=== PATIENT | male | born 1965 | race Caucasian/White ===

== ENCOUNTER 2019-05-13 12:18 | Observation (INO) | payer BC ==
[2019-05-12 22:20] VITALS: BP 154/89
[~2019-05-13] VITALS: Ht 180.3 cm; Wt 95.0 kg
[2019-05-13] MEDS ORDERED: aspirin 81mg tab.chew PO ONE (12:25)
[2019-05-13 12:52] LABS: BASOPHILS % (AUTO) 0.3 % (0-1); EOSINOPHILS # (AUTO) 0.2 X10'3 (0-0.9); EOSINOPHILS % (AUTO) 3.7 % (0-6); HEMATOCRIT 43.6 % (42.0-52.0); HEMOGLOBIN 15.2 g/dl (14.0-17.9); LYMPHOCYTES # (AUTO) 1.6 X10'3 (1.1-4.8); LYMPHOCYTES % (AUTO) 37.6 % (21-51); MEAN CORPUSCULAR HEMOGLOBIN 34.4 PG (27.0-31.0); MEAN CORPUSCULAR HGB CONC 34.8 g/dL (33.0-36.5); MEAN CORPUSCULAR VOLUME 98.6 FL (78-98); MEAN PLATELET VOLUME 8.3 FL (7.4-10.4); MONOCYTES # (AUTO) 0.5 X10'3 (0-0.9); NEUTROPHILS % (AUTO) 46.4 % (42-75); PLATELET COUNT 124 X10'3 (140-440); RED BLOOD COUNT 4.42 X10'6 (4.70-6.10); RED CELL DISTRIBUTION WIDTH 13.4 % (11.5-14.5); WHITE BLOOD COUNT 4.3 X10'3 (4.5-11.0)
[2019-05-13 13:05] LABS: ALANINE AMINOTRANSFERASE 51 U/L (12-78); ALBUMIN 4.4 G/DL (3.4-5.0); ALBUMIN/GLOBULIN RATIO 1.3 (1.1-1.5); ALKALINE PHOSPHATASE 70 IU/L (46-116); ANION GAP 11 (8-16); ASPARTATE AMINO TRANSFERASE 64 U/L (10-37); BILIRUBIN,TOTAL 1.5 MG/DL (0.1-1.0); BLOOD UREA NITROGEN 18 MG/DL (7-18); BUN/CREATININE RATIO 19.1 (5.4-32.0); CALCIUM 9.3 MG/DL (8.5-10.1); CHLORIDE 103 MMOL/L (99-107); CREATININE 0.94 MG/DL (0.60-1.10); GLUCOSE 108 MG/DL (70-104); POTASSIUM 4.4 MMOL/L (3.5-5.1); SODIUM 140 MMOL/L (135-145); TOTAL CARBON DIOXIDE 26.3 MMOL/L (24-32); TOTAL PROTEIN 7.9 G/DL (6.4-8.2); eGFR 83 ML/MIN
[2019-05-13 13:12] LABS: MAGNESIUM 1.9 MG/DL (1.5-2.4)
--- NOTE | 2019-05-13 15:30 | NUR ---
pt amb with steady gait to overflow (no beds available in main ER), pt is 53 yo male c/o left sided chest "tightness", nonradiating, +SOB, no n/v, pt is GCS 15, alert and oriented, resp even and unlabored, seen at [facility] yesterday and dc'd home follow up with PMD, pt has been evaluated by Dr Bryant
[2019-05-13] MEDS ORDERED: acetaminophen 325mg tablet PO PRN (15:55)
[2019-05-13] MEDS ORDERED: ondansetron/PF 4mg/2ml inj IV PRN (15:55)
[2019-05-13] MEDS ORDERED: mag hydrox/Alum hydrox/simeth 30ml oral suspension PO PRN (15:55)
[2019-05-13] MEDS ORDERED: potassium CL 10mEq/100ml bag 100 ML IV PRN ×2 (15:55)
[2019-05-13] MEDS ORDERED: magnesium 4gm in 100ml NS 100 ML IV PRN (15:55)
[2019-05-13] MEDS ORDERED: magnesium Cl slow-release 64mg tablet PO PRN (15:55)
[2019-05-13] MEDS ORDERED: morphine 2 MG/ML inj. syringe IV PRN (15:55)
[2019-05-13] MEDS ORDERED: potassium Cl 20 mEq SR tablet PO PRN ×2 (15:55)
[2019-05-13] MEDS ORDERED: magnesium 2GM in 50ml NS 50 ML IV PRN (15:55)
[2019-05-13] MEDS ORDERED: aminophylline 250mg/10ml inj. IV PRN (16:00)
[2019-05-13] MEDS ORDERED: nitroGLYCERIN 0.4mg SUBLingual tab SL PRN (16:00)
[2019-05-13] MEDS ORDERED: metoprolol tartrate 1mg/ml inj IV PRN (16:00)
--- NOTE | 2019-05-13 16:17 | NUR ---
pt has water at bedside, does not need a snack right now
--- NOTE | 2019-05-13 18:16 | NUR ---
at bedside, Margarita, , pt is resting quietly on gurney, waiting for bed assigment
[2019-05-13] MEDS ORDERED: ROSU20TA31 PO (18:41)
[2019-05-13] MEDS ORDERED: ALLO100T PO (18:41)
[2019-05-13] MEDS ORDERED: SULI200T97 PO (18:41)
[2019-05-13] MEDS ORDERED: ESCI10TA61 PO (18:41)
[2019-05-13] MEDS ORDERED: TRAZ-256 PO (18:41)
[2019-05-13] MEDS ORDERED: ALLO100T15 PO (18:45)
[2019-05-13] MEDS: K and/or MAG REPLACEMENT MC SCH (20:00)
--- NOTE | 2019-05-13 21:15 | NUR ---
pt sitting on chair, playing on phone
--- NOTE | 2019-05-13 22:10 | NUR ---
Patient arrived from ED via gurney, pt is alert and oriented.
[2019-05-14] VITALS (8 sets, daily range): BP systolic 126–143; BP diastolic 69–90
[2019-05-14 01:08] LABS: ALANINE AMINOTRANSFERASE 46 U/L (12-78); ALBUMIN 4.1 G/DL (3.4-5.0); ALBUMIN/GLOBULIN RATIO 1.2 (1.1-1.5); ALKALINE PHOSPHATASE 62 IU/L (46-116); ANION GAP 8 (8-16); ASPARTATE AMINO TRANSFERASE 52 U/L (10-37); BILIRUBIN,TOTAL 1.5 MG/DL (0.1-1.0); BLOOD UREA NITROGEN 15 MG/DL (7-18); BUN/CREATININE RATIO 16.7 (5.4-32.0); CALCIUM 8.8 MG/DL (8.5-10.1); CHLORIDE 104 MMOL/L (99-107); GLUCOSE 91 MG/DL (70-104); POTASSIUM 3.8 MMOL/L (3.5-5.1); SODIUM 138 MMOL/L (135-145); TOTAL CARBON DIOXIDE 26.1 MMOL/L (24-32); TOTAL PROTEIN 7.5 G/DL (6.4-8.2); eGFR 88 ML/MIN
[2019-05-14 01:11] LABS: MAGNESIUM 2.1 MG/DL (1.5-2.4)
[2019-05-14 01:28] LABS: BASOPHILS % (AUTO) 0.6 % (0-1); EOSINOPHILS # (AUTO) 0.1 X10'3 (0-0.9); EOSINOPHILS % (AUTO) 3.1 % (0-6); HEMATOCRIT 40.9 % (42.0-52.0); HEMOGLOBIN 14.6 g/dl (14.0-17.9); LYMPHOCYTES # (AUTO) 1.9 X10'3 (1.1-4.8); LYMPHOCYTES % (AUTO) 43.1 % (21-51); MEAN CORPUSCULAR HEMOGLOBIN 35.2 PG (27.0-31.0); MEAN CORPUSCULAR HGB CONC 35.6 g/dL (33.0-36.5); MEAN CORPUSCULAR VOLUME 98.8 FL (78-98); MEAN PLATELET VOLUME 8.8 FL (7.4-10.4); MONOCYTES # (AUTO) 0.5 X10'3 (0-0.9); MONOCYTES % (AUTO) 12.6 % (2-12); NEUTROPHILS # (AUTO) 1.8 X10'3 (1.8-7.7); NEUTROPHILS % (AUTO) 40.6 % (42-75); PLATELET COUNT 124 X10'3 (140-440); RED BLOOD COUNT 4.14 X10'6 (4.70-6.10); RED CELL DISTRIBUTION WIDTH 13.5 % (11.5-14.5); WHITE BLOOD COUNT 4.3 X10'3 (4.5-11.0)
--- NOTE | 2019-05-14 06:05 | NUR ---
Patient in room [facility]. I have received report from IVÁN Cook and had the opportunity to ask questions and assume patient care. Addendum: 05/14/19 at 0716 by Kera Cuevas RN Report received from IVÁN Mirza NOT IVÁN Cook.
--- NOTE | 2019-05-14 06:17 | NUR ---
Problems reprioritized. Patient report given, questions answered & plan of care reviewed with IVÁN Cote.
[2019-05-14] MEDS: K and/or MAG REPLACEMENT MC SCH (07:00)
[2019-05-14] MEDS ORDERED: NEBI10TA2 PO (07:36)
[2019-05-14] MEDS: regadenoson 0.4mg/5ml syringe IV PRN ×2 (12:40→13:04)
[2019-05-14] MEDS ORDERED: allopurinol 100mg tablet PO SCH (13:05)
[2019-05-14] MEDS ORDERED: ESCITALOPRAM OXALATE 5 MG TABLET PO SCH (13:18)
[2019-05-14] MEDS ORDERED: atorvastatin 20mg tablet PO SCH (13:20)
--- NOTE | 2019-05-14 17:30 | NUR ---
DC inst provided to pt. IV DC'd, tip intact. All belongings sent w/pt. Pt ambulated to front lobby.
[2019-05-14] MEDS ORDERED: metoprolol tartrate 50mg tablet PO SCH (20:00)
[2019-05-14] MEDS ORDERED: traZODone 50mg tablet PO SCH (21:00)
== END 2019-05-14 17:33 | disposition home or self-care (01) ==
LOC: ER 12:19 → ED HOLD 15:54 → SUR 3N 21:51
PROVIDERS: ADMIT Internal Medicine; ATTEND Internal Medicine
DX: R07.89 Other chest pain (principal); I24.9 Acute ischemic heart disease, unspecified; I10 Essential (primary) hypertension; E78.5 Hyperlipidemia, unspecified; E78.00 Pure hypercholesterolemia, unspecified; Z79.899 Other long term (current) drug therapy
CPT/HCPCS: 36415; 78452; 80053; 83735; 83880; 84484; 85025; 87081; 93005; 93017; 99284; A9500; G0378; J2785